=== PATIENT | female | born 2000 | race Hispanic/Latino ===

== ENCOUNTER 2024-08-18 15:00 | Emergency (ER) | payer OTHER ==
[~2024-08-18] VITALS: Ht 162.6 cm; Wt 64.2 kg
[2024-08-18 16:46] LABS: BASO % 0.2 % (0.0-1.0); HEMATOCRIT 42.8 % (36.0-47.0); HEMOGLOBIN 13.8 g/dl (12.0-15.5); LYMPH # 1.3 10^3/uL (1.5-5.0); LYMPH % 7.4 % (24.0-44.0); MEAN CORPUSCULAR HEMOGLOBIN 25.8 pg (27.0-33.0); MEAN CORPUSCULAR HGB CONC 32.2 g/dl (32.0-36.5); MONO # 0.8 10^3/uL (0.0-0.8); MONO % 4.6 % (2.0-8.0); NEUTROPHILS # 15.3 10^3/uL (1.5-8.5); NEUTROPHILS % 87.3 % (36.0-66.0); PLATELET COUNT, AUTOMATED 404 10^3/uL (150-450); RED BLOOD COUNT 5.35 10^6/uL (4.00-5.40); WHITE BLOOD COUNT 17.5 10^3/uL (4.0-10.0)
[2024-08-18 17:10] LABS: LIPASE 33 U/L (12-53)
[2024-08-18 17:13] LABS: ALBUMIN 4.5 G/DL (3.2-5.2); ALKALINE PHOSPHATASE 133 U/L (35-104); ALT/SGPT 14 U/L (7.0-40); AST/SGOT 16 U/L (<34); BILIRUBIN,DIRECT < 0.1 MG/DL (<0.4); BILIRUBIN,TOTAL 0.3 MG/DL (0.3-1.2); BLOOD UREA NITROGEN 14 MG/DL (9-23); CARBON DIOXIDE LEVEL 27 MMOL/L (20-31); CHLORIDE LEVEL 104 MMOL/L (98-107); CREATININE FOR GFR 0.66 MG/DL (0.55-1.30); GLOMERULAR FILTRATION RATE > 60.0 (>60); GLUCOSE, FASTING 120 MG/DL (60-100); POTASSIUM SERUM 4.3 MMOL/L (3.5-5.1); SODIUM LEVEL 140 MMOL/L (136-145); TOTAL PROTEIN 8.8 G/DL (5.7-8.2)
[2024-08-18 17:20] LABS: HCG, SERUM QUALITATIVE NEGATIVE (NEGATIVE)
[2024-08-18 17:25] LABS: KETONE, URINE AUTO RFX TRACE mg/dL (NEGATIVE); LEUKOCYTE ESTERASE UR AUTO RFX NEGATIVE (NEGATIVE); MUCUS, URINE RFX SMALL (NEGATIVE); NITRITE, URINE AUTO RFX NEGATIVE (NEGATIVE); RBC, URINE AUTO RFX 1 /HPF (0-3); SQUAM EPITHELIAL CELL UR AURFX 3 /HPF (0-6)
[2024-08-18] MEDS: KETOROLAC 30 MG/ML 1ML VIAL IV ONE (20:30)
[2024-08-18] MEDS: ONDANSETRON 4MG 2ML VIAL IV ONE (20:30)
[2024-08-18] MEDS ORDERED: ISOVUE-370 76% 100ML VIAL As Ordered ONE (20:30)
[2024-08-18 21:12] VITALS: BP 116/61; TEMP 99; O2SAT 100
[2024-08-18] MEDS ORDERED: ONDA-282 PO (21:48)
== END 2024-08-18 22:00 | disposition home or self-care (01) ==
LOC: M ED 15:00
DX: K52.9 Noninfective gastroenteritis and colitis, unspecified (principal); R11.2 Nausea with vomiting, unspecified; Z79.899 Other long term (current) drug therapy
CPT/HCPCS: 74177; 80048; 80076; 81001; 83605; 83690; 84703; 85025; 87040; 87486; 87581; 87633; 87798; 96374; 99283; J1885; J2405; Q9967